=== PATIENT | male | born 1955 | race Caucasian/White ===

== ENCOUNTER 2020-05-13 18:22 | Emergency (ER) | payer MEDICARE, OTHER | END 2020-05-13 20:54 | disposition home or self-care (01) | LOC: ED 18:22 | DX: S01.01XA Laceration without foreign body of scalp, initial encounter (principal); I10 Essential (primary) hypertension; W11.XXXA Fall on and from ladder, initial encounter; Y93.89 Activity, other specified; Y92.89 Other specified places as the place of occurrence of the external cause; Y99.8 Other external cause status ==

== ENCOUNTER → 2021-07-21 | Outpatient (CLI) | payer MEDICARE, OTHER | END | disposition home or self-care (01) | LOC: RAD 15:57 | PROVIDERS: ATTEND Chiropractor | DX: M54.2 Cervicalgia (principal) ==